=== PATIENT | female | born 1950 | race Caucasian/White ===

== ENCOUNTER 2019-05-01 12:34 | Inpatient (IN) ==
[2019-05-01] MEDS ORDERED: CeFAZolin Syr 2,000MG/20 ML 2,000 MG/20 ML SYRINGE IVPB ONE (12:52)
[2019-05-01] MEDS ORDERED: Ringers Solution, Lactated 1,000 ML IVC SCH ×2 (13:00→17:16)
[2019-05-01] MEDS ORDERED: Ondansetron 4 MG/2 ML VIAL IVP ONE (13:09)
[2019-05-01] MEDS ORDERED: *HR* HYDROmorphone (PF) 1 MG/ML SYRINGE IVP PRN (13:09)
[2019-05-01] MEDS ORDERED: *HR* OxyCODONE Immed Rel 5 MG TABLET PO PRN ×2 (13:09→17:16)
[2019-05-01] MEDS ORDERED: Dexamethasone 4 MG/ML VIAL IVP ONE (13:09)
[2019-05-01] MEDS ORDERED: *HR* Propofol 200 MG/20 ML VIAL IVP ONE (13:56)
[2019-05-01] MEDS ORDERED: Ethanol\\Acetic Acid\\Na Ace\\Ben 1,000 ML IRRIG.SOLN IR ONE (14:03)
[2019-05-01] MEDS ORDERED: Acetaminophen IV 1,000 MG/100 ML INFUS..BTL ONE (14:04)
[2019-05-01] MEDS ORDERED: Ropivacaine/PF 0.5% 30 ML VIAL ONE (14:04)
[2019-05-01] MEDS ORDERED: Ondansetron 4 MG/2 ML VIAL ONE (14:41)
[2019-05-01] MEDS ORDERED: Dexamethasone 4 MG/ML VIAL ONE (14:41)
[2019-05-01] MEDS ORDERED: EPHEDrine 50 MG/ML VIAL ONE (14:47)
[2019-05-01] MEDS ORDERED: *HR* PHENYLEPHRINE 1,000 MCG/10 ML SYRINGE IVP ONE (15:16)
[2019-05-01 16:51] LABS: Hematocrit 36.2 % (35.3-44.9); Hemoglobin 12.1 g/dL (11.5-15.4)
[2019-05-01] MEDS ORDERED: Sennosides 8.6 MG TABLET PO PRN (17:16)
[2019-05-01] MEDS ORDERED: Temazepam 15 MG CAPSULE PO PRN (17:16)
[2019-05-01] MEDS ORDERED: *HR* OxyCODONE/APAP 5/325 TABLET PO PRN (17:16)
[2019-05-01] MEDS ORDERED: traMADol 50 MG TABLET PO PRN (17:16)
[2019-05-01] MEDS ORDERED: MOM Conc 10 ML UD.LIQ PO PRN (17:16)
[2019-05-01] MEDS ORDERED: Ondansetron 4 MG/2 ML VIAL IVP PRN (17:16)
[2019-05-01] MEDS ORDERED: *HR* Enoxaparin 30 MG/0.3 ML SYRINGE SQ SCH (18:00)
[2019-05-01] MEDS ORDERED: Loratadine 10 MG TABLET PO SCH (18:00)
[2019-05-01] MEDS: *HR* Enoxaparin 30 MG/0.3 ML SYRINGE SQ SCH (18:02)
[2019-05-01] MEDS ORDERED: levETIRAcetam 250 MG TABLET PO SCH (21:00)
[2019-05-02] MEDS: *HR* Enoxaparin 30 MG/0.3 ML SYRINGE SQ SCH (04:44)
[2019-05-02 04:52] LABS: Hematocrit 31.7 % (35.3-44.9); Hemoglobin 10.7 g/dL (11.5-15.4)
[2019-05-02 05:03] LABS: BUN/Creatinine Ratio 20 (6-26); Blood Urea Nitrogen 19 mg/dL (8-23); Calcium 8.7 mg/dL (8.6-10.3); Carbon Dioxide 17 mEq/L (23-29); Chloride 105 mEq/L (98-107); Glucose 126 mg/dL (70-105); Osmolality,Calculated 278 (280-300); Potassium 4.3 mEq/L (3.5-5.1); Sodium 132 mEq/L (136-145); eGFR For African Americans > 60 (> 60); eGFR For Non-African Americans 57 (> 60)
[2019-05-02] MEDS ORDERED: Levothyroxine 25 MCG TABLET PO SCH (06:30)
[2019-05-02] MEDS ORDERED: BIOTIN 300 MCG PO SCH (09:00)
[2019-05-02] MEDS ORDERED: Cholecalciferol (D-3) 1,000 UNIT (25MCG) TABLET PO SCH (09:00)
[2019-05-02] MEDS ORDERED: NON-FORMULARY MEDICATION 1 EACH EACH (Potassium 99 MG) PO SCH (09:00)
[2019-05-02] MEDS ORDERED: Multivit/Ca/Min/Fe/FA 1 TAB TABLET PO SCH (09:00)
[2019-05-02] MEDS ORDERED: 0.9 % Sodium Chloride 500 ML IV ONE (11:15)
[2019-05-02] MEDS ORDERED: *HR* HYDROcodone/Acet 5/325 mg TABLET PO PRN (11:17)
[2019-05-02 13:48] VITALS: BP 114/72
== END 2019-05-02 15:12 | disposition home health service (06) | DRG 483 ==
LOC: SAMDAY 12:34 → 3NENU 16:59
PROVIDERS: ADMIT Orthopaedic Surgery; ATTEND Orthopaedic Surgery